=== PATIENT | female | born 1975 | race Caucasian/White ===

== ENCOUNTER 2020-07-25 09:10 | Day surgery (SDC) | payer OTHER, SELFPAY ==
--- NOTE | 2020-07-17 14:11 | HP.PCM_ITS ---
History and Physical Date of Admission: 07/25/20 HPI: The patient is a 44 year old female presenting for pre-operative visit. She is scheduled for?exam under anesthesia and IUD insertion, for?dysmenorrhea and stenotic cervical os on?07/25/2020. ??Procedure discussed along with risks, benefits and complications. ?Other alternatives discussed for management. Consent form signed??not yet? ? ? PAST MEDICAL HISTORY PAST MEDICAL HISTORY Diagnosis Date ? Female infertility of unspecified origin ? ? Female infertility ? Herpes zoster without mention of complication 2003 ? Leiomyoma of uterus, unspecified ? ? PMH - PAST MEDICAL HISTORY OF ? ? Skin cancer (Left calf)- melanoma ? PMH - PAST MEDICAL HISTORY OF ? ? Factor 5 Leiden ? ? PAST SURGICAL HISTORY PAST SURGICAL HISTORY Procedure Laterality Date ? DELIVERY ONLY ? 2009 ? , low transverse ? D&C, DIAG AND/OR THERAPEUTIC ? 02/2015 ? D&C w/ mirena insertion HMB and stenotic cervix ? EXCISION GANGLION CYST, FOOT ? 07/2011 ? left ? IVF RETRIEVAL ANY METHOD ? 2008 ? PAST SURGICAL HISTORY OF ? 1994 ? Repair of tendon on finger of right thand ? PAST SURGICAL HISTORY OF ? 2004 ? Laparoscopy ? PAST SURGICAL HISTORY OF ? 1999 ? EXCISION OF SKIN CANCER, left leg? ? ? w CURRENT MEDICATIONS Current Outpatient Medications Medication Sig Dispense Refill ? ciclopirox (LOPROX) 0.77 % cream APPLY TO NAILS DIRECTLY EVERY NIGHT ? ? ? fluconazole (DIFLUCAN) 200 mg tablet Take 200 mg by mouth one time a week. ? ? ? No current facility-administered medications for this visit.? ? ALLERGIES:?Patient has no known allergies. ? PERSONAL HISTORY:? SOCIAL HISTORY Social History ? Tobacco Use ? Smoking status: Never Smoker ? Smokeless tobacco: Never Used Substance Use Topics ? Alcohol use: Yes ? ? Comment: Wine 1-2x a MONTH,NOT WHILE ? Drug use: No ? FAMILY HISTORY:? FAMILY HISTORY FAMILY HISTORY Problem Relation Age of Onset ? Multiple Sclerosis Mother ? ? Lipids Maternal Grandfather ? ? Hypertension Paternal Grandmother ? ? Alzheimer's Disease Paternal Grandfather ? ? Diabetes Paternal Grandfather ? ? Colon Cancer Other ?MGr.GFather ? other (Ms) Other ?Mother ? DVT Other ?COUSIN ? DVT Paternal Uncle ? ? other (POSTOPERATIVE THROMBOSIS) Sister ? ? REVIEW OF SYMPTOMS: GENERAL: denies fevers or chills ENDOCRINOLOGY: has not been on steroids Cardiology : denies palpitations or chest pain Respiratory: denies SOB or cough Hematology: denies history of prolonged bleeding or easy bruising or VTE Allergy: Denies history of personal or family history of allergy to anesthesia ? ? PHYSICAL EXAMINATION: ? VITALS:?Blood pressure 92/56, weight 110 lb (49.9 kg), last menstrual period 01/23/2015. ? GENERAL:??The patient is well nourished, well hydrated in no acute distress. ?, The patient is oriented to time, place, and person. NECK:?Supple. No lynphadenopathy, normal thyroid, no thyromegaly. LUNGS:?Clear to auscultation bilaterally. no wheezes, rhonchi or rales GENITALIA:?Normal external genitalia, Urethral meatus normal, Bladder nontender, normal vagina and normal vaginal tone, normal cervix, normal uterus, size and consistency, normal adnexa without masses or tenderness and perineum WNL ? IMPRESSION:?Stenotic cervix, dysmenorrhea, ? PLAN:???The risks/benefits/alternatives and personal involved for the planned?exam under anesthesia and IUD insertion?were reviewed with the patient. Her questions were answered to her satisfaction and she desires to proceed. ?Consent was signed. ?I reviewed with her postop instructions and expectations. I was unable to place the IUD in the office ? I have reviewed and updated past medical and surgical history, medications and allergies. this history and physical was completed in my office on 07/08/2020. Procedure Criteria Procedure Type: Elective COVID Risk Discussion: The surgeon/proceduralist and patient have discussed in detail the risk of exposure to and/or potential harm posed by the COVID-19 virus with having a surgery/procedure at this time versus the risk of delaying the surgery/procedure. It is not possible to know either the risk of delaying the surgery or procedure or chance of getting an infection with perfect accuracy, but a joint decision was made between the patient and the surgeon/proceduralist to proceed at this time with the scheduled surgery/procedure as indicated on the consent form.
[2020-07-25] VITALS (8 sets, daily range): BP systolic 95–110; BP diastolic 56–69; PULSE 60–80; RESP 16–18; TEMP 36.4–37.3; O2SAT 98–100; BMI 19.7
[2020-07-25 09:52] LABS: Internal QC Validated? YES +Cl - CLEAR BKGD; Pregnancy, Urine Negative Negative
[2020-07-25] MEDS: Lactated Ringers 1,000 ML 40 ML IV ×2 (09:57→11:45)
[2020-07-25] MEDS: Levonorgestrel IUD (Liletta) 1 EACH IY (10:50)
--- NOTE | 2020-07-25 11:27 | DCINST_ITS ---
- Discharge Diagnoses Reason(s) for Visit for Discharge Instructions: Exam under anesthesia and Insertion of Lilleta IUD You will use the following diet at home:: No restrictions Your food should be the consistency of: Regular Your liquids should be the consistency of: Regular/Thin Discharge Activity: Return to Normal Activity Return to work on:: 07/26/20 May shower in (days): 1 May resume sexual activity in: 1 week Lifting Restrictions: none Call your doctor if your incision/area has: Foul Smelling Discharge Call your doctor if you observe: Fever of 101 or Higher, Using more than one pad per hour - for 2 hrs in a row Allergies/Adverse Reactions: Allergies No Known Allergies Allergy (Verified 07/25/20 09:35) Medications to take at Discharge NK 07/16/20 Primary Care Physician: Anamaria Sanchez DO [Primary Care Provider] - Test Results: Test results from this visit will be discussed in further detail at your follow- up appointment, if applicable. Please Follow Up With: Valery Staley MD - [phone] When: as needed
[2020-07-25] MEDS: Vasopressin 20 UNITS/ML Vial (11:32)
--- NOTE | 2020-07-25 11:49 | OP.PCM_ITS ---
Report of Operation Date of Procedure: 07/25/20 Pre-Operative Diagnosis: menorrhagia, stenotic cervical os Post-Operative Diagnosis: same Surgery/Procedure Performed:: Exam under anesthesia, insertion of Liletta IUD filler and trimmer: None Type of Anesthesia:: MAC Anesthesiologist: Lvi Hyde Special Medications: 3 units of vasopression solution injeted into cervix Specimen's removed: none Drains: none Estimated Blood Loss (mL): 5 Fluids Replaced: 1100 Description of Procedure: Patient was taken operating room where she is prepped draped in dorsolithotomy position. A speculum was placed in the vagina and the anterior lip of the cervix was grasped with a tenaculum. Dilute vasopressin solution was injected into the cervix. The uterus was very anteverted. The cervix was dilated slowly as it was very stenotic. It sounded to 7 cm. The Liletta IUD was then inserted in the usual sterile fashion. This were trimmed to 2 cm. A vaginal sweep was completed by me. Sponge and needle counts were correct. Start time:1132 Time:1148 Grafts/Implants Used: Liletta IUD - Complications none - Admit VTE Documentation VTE Present on Admission: No VTE Mechan Device Prophylaxis: SCD's, None VTE Pharm Prophylaxis ordered?: No Reason prophylaxis not ordered:: Procedure Not Indicated
== END 2020-07-25 13:57 | disposition home or self-care (01) ==
LOC: SDC 09:18 → AC 09:18
PROVIDERS: Anesthesiology; PCP Internal Medicine; Referring Provider Obstetrics & Gynecology; Visit Provider Obstetrics & Gynecology
PROC: (CPT 58120; principal; 2020-07-25 10:35)
DX: N94.6 Dysmenorrhea, unspecified (principal); N92.0 Excessive and frequent menstruation with regular cycle; N88.2 Stricture and stenosis of cervix uteri; Z30.430 Encounter for insertion of intrauterine contraceptive device; N97.9 Female infertility, unspecified; D68.51 Activated protein C resistance; Z20.828 Contact with and (suspected) exposure to other viral communicable diseases
CPT/HCPCS: 58300; 81025; 87635; C9803; J7120; U0003

== ENCOUNTER 2024-05-15 06:15 | Emergency (ER) | payer OTHER, SELFPAY ==
[2024-05-15 06:17] VITALS: BP 123/72; PULSE 64; RESP 16; TEMP 36.5; O2SAT 100; BMI 24.3
[2024-05-15 07:08] VITALS: BP 108/61; PULSE 70; RESP 16; O2SAT 99
--- NOTE | 2024-05-15 07:08 | EX.ED.DYSGE1 ---
HPI History of Present Illness Chief Complaint: Dizziness Informant: patient Narrative Narrative: Patient presents 1-2 hours after rolling over in bed and suddenly having dizziness as a result. She states she was lying on her right side, she woke up and rolled over onto her left and then suddenly started having spinning sensation and nausea. She then was having a vision disturbance where things look like they were moving even though they were not and she was sitting still, but no diplopia or visual field cuts. No peripheral neurologic symptoms. No headache, loss of consciousness, neck stiffness, or any other recent illness or injury. Never had this before. No recent URIs. She denies any ear pain, tinnitus, or hearing change. [facility] Medical History finger surgery Skin cancer Home Medications ?Medication ?Instructions ?Recorded ?Last Taken ?Type meclizine 25 mg tablet 25 mg PO Q8H PRN PRN Dizziness #20 05/15/24 Unknown Rx tabs ondansetron 8 mg disintegrating 8 mg PO Q8H PRN nausea and 05/15/24 Unknown Rx tablet vomiting #20 tabs Allergy/AdvReac Type Severity Reaction Status Date / Time No Known Allergies Allergy Verified 07/25/20 09:35 Surgical History Hx of section Social History Smoking Status: Never smoker alcohol intake: never ROS ROS ED Constitutional Constitutional ED: Denies chills or fever(s) Eyes Eyes: Denies change in vision or diplopia ENT ENT ED: Reports dizziness; Denies abnormal hearing, ear pain, rhinorrhea, sore throat or tinnitus Cardiovascular Cardiovascular: Denies chest pain or palpitations Respiratory/Chest Respiratory/Chest: Denies cough or dyspnea Gastrointestinal Gastrointestinal: Reports nausea and vomiting; Denies abdominal pain or diarrhea Genitourinary Genitourinary ED: Denies dysuria or hematuria Musculoskeletal Musculoskeletal: Denies back pain or neck pain Integumentary Denies abscess or rash Neurologic Neurologic: Denies headache(s), paresthesias or weakness Psychiatric Psychiatric: Reports anxiety; Denies suicidal thoughts EXAM Physical Exam Const Vital Signs: 05/15/24 06:17 05/15/24 06:20 05/15/24 07:08 Temperature 97.7 F L Temperature Source Oral Pulse Rate 64 70 Respiratory Rate 16 16 Respiratory Effort Normal Respiratory Pattern Normal Blood Pressure 123/72 H 108/61 Blood Pressure Mean 89 76 Pulse Ox 100 99 Oxygen Delivery Method Room Air Positive well nourished and well developed General Appearance ED: well developed and NAD HEENT Reports moist mucous membranes HEENT Narrative: Ear exam benign bilaterally except for cerumen impaction on the right, obscuring any visualization of the dependent membrane, the left TM is normal. normocephalic and atraumatic Eyes PERRL and EOMs intact bilaterally Eyes Narrative: No pathologic nystagmus. Neck full ROM and supple Resp normal respiratory effort and clear to auscultation bilaterally Cardio regular rate, regular rhythm and no murmurs GI non-tender and non-distended Auscultation: normoactive bowel sounds Palpation: soft Back/Spine no CVA tenderness General Back: other FROM Extremity normal to inspection General Extremety ED: Negative for edema, pulses abnormal or tenderness General Extremity: Negative for edema or pulses abnormal Neuro oriented x3, CN's II-XII intact bilaterally and no sensory deficits noted Neuro Narrative: Positive [place] to the left, immediately causing patient to be very vertiginous and continuously vomiting. Normal [id number] and [id number] bilaterally. Jolt test not possible while patient is symptomatic due to continuously vomiting. Sensorium / Orientation: awake and alert Motor Exam: strength 5/5 throughout Psych mental status grossly normal Skin no rashes or lesions noted and no wounds MDM MDM MDM Narrative Medical decision making narrative: Patient vital signs are normal, she is not an alcoholic. This is all consistent with BPPV, peripheral vertigo involving the left ear. I do not think this is central, I do not think she needs further testing or imaging. Treatment and supportive care advised, follow-up for vestibular therapy if symptoms do not self-resolve. She is comfortable with that plan. She was given meclizine and Zofran here along with prescriptions. Discharge Plan Triage Chief Complaint: Dizziness ED Provider: Merritt Griffin Dx/Rx/DC Orders Clinical Impression: Benign paroxysmal positional vertigo of left ear Instructions: ED BPV Vertigo Prescriptions: New meclizine 25 mg tablet 25 mg PO Q8H PRN PRN (Reason: Dizziness) Qty: 20 0RF ondansetron 8 mg tablet,disintegrating 8 mg PO Q8H PRN (Reason: nausea and vomiting) Qty: 20 0RF Primary Care Provider: Anamaria Sanchez Referrals: Anamaria Sanchez DO [Primary Care Provider] - Jacinto Olivarez MD [Med Staff - Active Staff] - 3-5 Days if not improving Print Language: [place] Disposition Disposition: Home, Self Care
[2024-05-15] MEDS: Ondansetron ODT 4 MG Tablet 8 MG PO (07:11)
[2024-05-15] MEDS: Meclizine HCl 25 MG Tablet PO (07:39)
--- NOTE | 2024-05-15 07:40 | ED.RN ---
nausea improved able to take po med. given at this time.
[2024-05-15 08:49] VITALS: BP 106/61; PULSE 74; RESP 16; TEMP 36.6; O2SAT 99
== END 2024-05-15 08:51 | disposition home or self-care (01) ==
PROVIDERS: Emergency Provider Emergency Medicine; PCP Internal Medicine; Visit Provider Emergency Medicine
DX: H81.12 Benign paroxysmal vertigo, left ear (principal); Z79.899 Other long term (current) drug therapy
CPT/HCPCS: 99284

== ENCOUNTER → 2024-05-27 | Outpatient (CLI) | payer OTHER, SELFPAY ==
[2024-05-27 07:51] LABS: Absolute Lymphocyte Count 1.73 X10^3/uL (0.83-4.51); Absolute Neutrophil Count 3.5 X10^3/uL (2.0-7.7); Basophil# 0.03 X10^3/uL; Basophil% 0.5 % (0-1); Eosinophil# 0.14 X10^3/uL; Eosinophils% 2.4 % (0-5); Hematocrit 39.3 % (37-47); Hemoglobin 12.7 g/dL (12.0-15.0); Lymphocyte # 1.73 X10^3/ul (0.83-4.51); Lymphocyte % 29.2 % (19-41); Mean Corp Hgb Conc 32.3 g/dL (32-36); Mean Corpuscular Volume 92.9 fL (81-99); Mean Platelet Vol. 9.4 fl (6.2-12.0); Monocyte# 0.48 X10^3/uL; Monocyte% 8.1 % (0-10); NRBC Flagged by Analyzer 0 % (0-5); Neutrophil # 3.54 X10^3/uL (2.7-7.7); Neutrophil % 59.8 % (47-70); Platelet Count 251 K/mm3 (150-450); RBC Distribution Width CV 12.1 % (11.6-14.6); RBC Distribution Width SD 41.6 fl (35.1-43.9); Red Blood Count 4.23 M/mm3 (4.2-5.4); White Blood Count 5.9 K/mm3 (4.4-11.0)
[2024-05-27 08:11] LABS: ALB/GLOB Ratio 1.1 RATIO (0.9-2.4); AST(SGOT) 12 U/L (15-37); Alanine Aminotransfer ALT/SGPT 16 U/L (13-56); Albumin, Serum 3.7 g/dL (3.2-5.0); Alkaline Phosphatase 68 U/L (45-117); Anion Gap 3 (5-15); BUN 17 mg/dL (7-18); BUN/Creat Ratio 21.4 RATIO (10-20); Calcium,Total 9.1 mg/dL (8.5-10.1); Chloride 111 mmol/L (98-107); Cholesterol 192 mg/dL (200); EST Glomerular Filtration Rate 82 mL/min (>60); Est Glom Filt Rate - Afr Amer 99 mL/min (>60); Globulin 3.3 g/dL (2.2-4.2); Glucose 92 mg/dL (74-106); High Density Lipoprotein 57 mg/dL; Potassium 4.3 mmol/L (3.5-5.1); Sodium Level 140 mmol/L (136-145); Triglycerides 92 mg/dL; Very Low Density Lipoprotein 18 mg/dL (5-40)
== END | disposition home or self-care (01) ==
LOC: LAB 07:32
PROVIDERS: PCP Nurse Practitioner Family; Referring Provider Nurse Practitioner Family; Visit Provider Nurse Practitioner Family
DX: Z00.01 Encounter for general adult medical examination with abnormal findings (principal)
CPT/HCPCS: 36415; 80053; 80061; 85025

== ENCOUNTER → 2025-02-10 | Outpatient (CLI) | payer OTHER, SELFPAY ==
[2025-02-10 10:45] LABS: Absolute Lymphocyte Count 1.32 X10^3/uL (0.83-4.51); Absolute Neutrophil Count 4.2 X10^3/uL (2.0-7.7); Basophil# 0.04 X10^3/uL; Basophil% 0.6 % (0-1); Eosinophil# 0.11 X10^3/uL; Eosinophils% 1.8 % (0-5); Hematocrit 40.2 % (37-47); Hemoglobin 13.1 g/dL (12.0-15.0); Lymphocyte # 1.32 X10^3/ul (0.83-4.51); Lymphocyte % 21.2 % (19-41); Mean Corp Hgb Conc 32.6 g/dL (32-36); Mean Platelet Vol. 9.8 fl (6.2-12.0); Monocyte# 0.52 X10^3/uL; Monocyte% 8.4 % (0-10); NRBC Flagged by Analyzer 0 % (0-5); Neutrophil % 67.5 % (47-70); Platelet Count 299 K/mm3 (150-450); RBC Distribution Width CV 12.6 % (11.6-14.6); RBC Distribution Width SD 42.5 fl (35.1-43.9); Red Blood Count 4.37 M/mm3 (4.2-5.4); White Blood Count 6.2 K/mm3 (4.4-11.0)
[2025-02-10 11:57] LABS: ALB/GLOB Ratio 1.6 RATIO (0.9-2.4); AST(SGOT) 24 U/L (<=31); Alanine Aminotransfer ALT/SGPT 22 U/L (<=34); Albumin, Serum 4.5 g/dL (3.5-5.0); Alkaline Phosphatase 84 U/L (35-104); Anion Gap 11 (5-15); BUN 14 mg/dL (4-19); BUN/Creat Ratio 19.1 RATIO (10-20); Calcium,Total 9.2 mg/dL (7.6-11.0); Carbon Dioxide 21.5 mmol/L (21.0-32.0); Chloride 105 mmol/L (98-108); Creatinine, Serum 0.72 mg/dL (0.70-1.20); EST Glomerular Filtration Rate 103 (>60); Estradiol 45.7 pg/mL; Follicle Stimulating Hormone 13.9 mIU/mL; Globulin 2.7 g/dL (2.2-4.2); Glucose 86 mg/dL (70-99); Luteinizing Hormone 2.9 mIU/mL; Potassium 4.1 mmol/L (3.3-5.1); Protein, Total 7.2 g/dL (5.9-8.4); Sodium Level 137 mmol/L (133-145); Total Bilirubin 0.34 mg/dL (0.00-1.30); Vitamin B12 599 pg/mL (180-914); Vitamin D,25 Hydroxy 18.7 ng/mL (30-100)
[2025-02-10 14:55] LABS: Testosterone, Total 4.31 ng/dL (9-55)
[2025-02-14 15:08] LABS: PROLACTIN 13.3 ng/mL (4.8-33.4)
== END | disposition home or self-care (01) ==
LOC: LAB 09:55
PROVIDERS: PCP Nurse Practitioner Family; Referring Provider Nurse Practitioner Family; Visit Provider Nurse Practitioner Family
DX: R63.5 Abnormal weight gain (principal); R53.83 Other fatigue
CPT/HCPCS: 36415; 80053; 82306; 82607; 82670; 83001; 83002; 84146; 84402; 84403; 84439; 84443; 85025

== ENCOUNTER → 2025-05-10 | Outpatient (CLI) | payer OTHER, SELFPAY ==
[2025-05-10 12:59] LABS: AST(SGOT) 19 U/L (<=31); Alanine Aminotransfer ALT/SGPT 15 U/L (<=34); Albumin, Serum 4.5 g/dL (3.5-5.0); Alkaline Phosphatase 75 U/L (35-104); Bilirubin, Direct 0.16 mg/dL (0.00-0.30); Globulin 2.7 g/dL (2.2-4.2)
== END | disposition home or self-care (01) ==
LOC: BFHLAB 09:16
PROVIDERS: PCP Nurse Practitioner Family; Visit Provider Nurse Practitioner Family
DX: R74.8 Abnormal levels of other serum enzymes (principal)
CPT/HCPCS: 36415; 80076